=== PATIENT | male | born 1970 | race Caucasian/White ===

== ENCOUNTER 2022-10-03 15:37 | Outpatient (CLI) | payer OTHER, SELFPAY ==
--- NOTE | ~2022-10-03 | US_ITS ---
EXAMINATION: US venous doppler [facility] DATE: 10/03/2022 16:28 INDICATION: Coagulopathy with activated protein C resistance presenting with lower limb pain. TECHNIQUE: Grayscale ultrasound images without and with compression and Doppler ultrasound images of the left lower extremity veins were obtained. COMPARISON: None. FINDINGS: The visualized portions of left common femoral vein, profunda (deep) femoral vein, femoral vein, popl iteal vein, peroneal veins, posterior tibial veins, gastrocnemius vein and greater saphenous vein out flow are patent. IMPRESSION: 1. No deep venous thrombosis in the left lower limb. Reviewed, dictated and finalized at location B. [employer]
== END 2022-10-03 15:38 | disposition home or self-care (01) ==
PROVIDERS: PCP Emergency Medicine; Visit Provider Emergency Medicine
DX: D68.51 Activated protein C resistance (principal); M79.605 Pain in left leg; R10.32 Left lower quadrant pain
CPT/HCPCS: 93971

== ENCOUNTER 2022-11-21 16:08 | Outpatient (CLI) | payer OTHER, SELFPAY ==
--- NOTE | ~2022-11-21 | US_ITS ---
EXAMINATION: US soft tissue groin LT DATE: 11/21/2022 17:01 INDICATION: Assess for inguinal versus femoral hernia TECHNIQUE: Multiple grayscale and Doppler ultrasound images of the left groin were obtained. COMPARISON: None FINDINGS/IMPRESSION: With Valsalva there is development of a small fat-containing indirect left inguinal hernia arising la teral to the hypogastric vessels. Reviewed, dictated and finalized at location L.
== END 2022-11-21 16:09 | disposition home or self-care (01) ==
PROVIDERS: PCP Emergency Medicine; Visit Provider Emergency Medicine
DX: R10.32 Left lower quadrant pain (principal); K40.90 Unilateral inguinal hernia, without obstruction or gangrene, not specified as recurrent
CPT/HCPCS: 76882

== ENCOUNTER 2023-01-05 15:17 | Outpatient (CLI) | payer OTHER, SELFPAY ==
--- NOTE | 2023-01-05 15:30 | ECG_ITS ---
Measurements Intervals Harper Rate: 67 P: 66 MA: 177 QRS: 40 QRSD: 113 T: 35 QT: 385 QTc: 408 Interpretive Statements SINUS RHYTHM MODERATE INTRAVENTRICULAR CONDUCTION DELAY [110+ ms QRS DURATION] NO PREVIOUS ECG AVAILABLE FOR COMPARISON Electronically Signed On 01-05-2023 16:05:57 CDT by Halley Emmanuel M.D.
[2023-01-05 15:51] LABS: Anion Gap 6 mmol/L (8-16); Blood Urea Nitrogen 13 mg/dL (9-20); Calcium 9.6 mg/dL (8.4-10.2); Carbon Dioxide 30 mmol/L (22-30); Chloride 104 mmol/L (98-107); Estimated Glomerular Filt Rate > 60; Glucose 96 mg/dL (65-110); Potassium 4.6 mmol/L (3.4-5.0); Sodium 140 mmol/L (137-145)
[2023-01-05 15:56] LABS: Prothrombin Time 13.5 Seconds (11.1-14.7)
[2023-01-05 15:57] LABS: Partial Thromboplastin Time 28.9 SECONDS (22.3-36.8)
== END 2023-01-05 15:18 | disposition home or self-care (01) ==
LOC: ANHSURGERY 15:22
PROVIDERS: Anesthesiology; PCP Emergency Medicine; Visit Provider Surgery
DX: Z01.818 Encounter for other preprocedural examination (principal); K40.90 Unilateral inguinal hernia, without obstruction or gangrene, not specified as recurrent; D68.51 Activated protein C resistance; I10 Essential (primary) hypertension; Z79.899 Other long term (current) drug therapy
CPT/HCPCS: 36415; 80048; 85610; 85730; 86850; 86900; 86901; 93005

== ENCOUNTER 2023-01-11 01:30 | Day surgery (SDC) | payer OTHER, SELFPAY ==
[2023-01-02 15:30] VITALS: BMI 30.6
--- NOTE | 2023-01-02 15:35 | PC.NURSE ---
Report to the Outpatient Waiting Room, entrance under the green pavilion located off [facility], at time 6:00 on date 01/11/23. Planned Procedure Time: 7:30. Time changes happen often and if your time is changed the preop area will call you the afternoon before. - You and your visitor will be asked to self-screen and do not enter if you have any COVID symptoms. - A mask is optional within the hospital at this time. Patients may have clear liquids (water, carbonated beverages, clear teas, apple juice) until 3 hours prior to surgery (4:30) with a maximum of 20 ounces. - No food from midnight until time of surgery Take the following medications with a SIP of water the morning of surgery: FLUOXETINE DO NOT STOP ANY OF YOUR OTHER PRESCRIPTION MEDICATIONS PRIOR TO SURGERY EXCEPT THE FOLLOWING Medications to discontinue per physician: VITAMINS/SUPPLEMENTS Date to take last dose: 01/07/[address] DUFFY'S INSTRUCTIONS: LAST DOSE OF ELIQUIS 01/05/23 PM, THEN START LOVENOX 01/07/23 (AM & PM ON 01/07, 01/08, & 01/09. AM ONLY 01/10.) Please no make-up, nail english, hairspray, perfume, deodorant, or body powder the day of surgery. No jewelry (including any body piercings) or valuables the day of surgery, leave them at home. Please take a shower or bath the night before, or the morning of, surgery with an antibacterial soap (HIBICLENS). Wear comfortable, loose fitting clothing. - Jewelry must be removed prior to entering the operating room. Rings and piercings that are not removed may be cut off. - The hospital will not accept responsibility for valuables. - Please leave all valuables, including medications, at home the day of surgery. If you are going home after surgery, a licensed road driver must drive you home. - NO public transportation without another adult if you receive anesthesia. - We recommend that an adult stay with you for 24 hours following discharge. - We also recommend that you do not drive, make important decision, drink alcoholic beverages, or take any drugs that were not prescribed by your health care provider for at least 24 hours after your discharge time. Follow any additional instructions given to you from your surgeon. If you or anyone in your household have experienced Covid symptoms in the past week, please notify your surgeon or the nurse liaison at the phone number below for possible testing. Telephone instructions given to MICHAEL ALLAN and asked if any additional questions and then verbalized understanding. Patient advised to call surgeon office or pre surgery nurse liaison [phone] if any additional questions.
[2023-01-11] VITALS (9 sets, daily range): BP systolic 95–161; BP diastolic 46–99; PULSE 55–81; RESP 12–18; TEMP 36.5–36.8; O2SAT 99–100
[2023-01-11] MEDS: ACETAMINOPHEN 500 MG TABLET 1000 MG PO (06:48)
[2023-01-11] MEDS: KETOROLAC 15 MG/ML VIAL (*BKC) IV PUSH (07:00)
--- NOTE | 2023-01-11 07:01 | WPDANESEPPF ---
Anes - Initial Pre Proc Eval Procedure: Operation Date: 01/11/23 07:30 Proposed Procedures p Laparoscopic Left Inguinal Hernia Repair with Mesh, Davinci Assisted - Vincent Mcintosh DO s Open Umbilical Hernia Repair Possible Mesh - Vincent Mcintosh DO Date/Time: 01/11/23 07:01 Surgeon: Vincent Mcintosh DO Pre Op Diagnosis: umbilical hernia, left inguinal hernia Patient Data Age: 52 Gender: M Height: 1.91 m Weight: 112.2 kg Last Vital Signs Temp 36.5 C 01/11/23 06:22 Pulse 74 01/11/23 06:22 Resp 16 01/11/23 06:22 BP 143/97 H 01/11/23 06:22 Pulse Ox 99 01/11/23 06:22 O2 Del Method Room Air 01/11/23 06:22 Allergies Allergy/AdvReac Type Severity Reaction Status Date / Time No Known Allergies Allergy Verified 01/11/23 06:39 Home Medications Medication Instructions Recorded Confirmed Type lisinopril 10 See Rx Instructions .Route 05/05/22 01/11/23 Rx mg-hydrochlorothiazide 12.5 mg .COMPLEX #90 tabs tablet omeprazole 40 mg capsule,delayed See Rx Instructions .Route 06/02/22 01/11/23 Rx release .COMPLEX #90 caps apixaban 5 mg tablet (Eliquis) 5 mg PO BID #180 tabs 07/04/22 01/11/23 Rx enoxaparin 100 mg/mL subcutaneous 100 mg subcut Q12H #8 mL 12/08/22 01/11/23 Rx syringe (Lovenox) fluoxetine 20 mg capsule See Rx Instructions .Route 12/19/22 01/02/23 Rx .COMPLEX #180 caps cholecalciferol (vitamin D3) 125 125 mcg PO DAILY 01/02/23 01/11/23 History mcg (5,000 unit) tablet (Vitamin D3) omega 6-bup-rix-fish oil 1,000 mg 1 cap PO DAILY 01/02/23 01/11/23 History (120 mg-180 mg) capsule (Fish Oil) Patient hx anesthesia problems: none Family hx anesthesia problems: none Results Review: All pre-operative results and documents have been reviewed as part of the pre-operative evaluation. 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 Alcohol intake: current Drinks per week: 21 Alcohol use details: 3/DAY Substance use: never Substance use type: does not use Lack of Transportation: No Lack of Food: Never True Current Housing: I Have Housing Concerned About Future Housing: No Difficulty Paying Gas/Electric Bills: No Difficulty Paying for Meds: No Currently Unemployed: No Education: Master's Degree or Higher Difficulty w/ Childcare or Family Care: No Living arrangements: with family Spiritual care concerns: No Anes - Eval Final PreProcedure Day of Procedure 01/11/23 07:01 Patient weight: overweight Heart: regular rate and rhythm Lungs: clear to auscultation Airway: Mallampati scale class 1 Neurological: alert and oriented Last oral intake: >/= 8 hours ASA classification: III Emergent: no Anesthetic plan: proceed Anesthesia type and monitoring: general ETT and standard monitoring Results Review: All pre-operative results and documents have been reviewed as part of the pre-operative evaluation. Informed Consent: The patient's anesthetic plan and its attendant risks and benefits were discussed with the patient/family/POA. Questions were solicited and answers provided to the satisfaction of the patient/family/POA.
[2023-01-11] MEDS: LACTATED RINGERS 1,000 ML 30 ML IV CONT ×3 (07:06→10:40)
--- NOTE | 2023-01-11 07:11 | WPDHPUPDATE1 ---
History and Physical Update Update Date/Time: 01/11/23 07:11 History and Physical has been reviewed, including an updated exam of the patient. There are NO changes in the patient's condition. Risks, benefits, and alternatives have been discussed and questions answered. Patient agrees to proceed with procedure.
--- NOTE | 2023-01-11 07:11 | PM.IMHP ---
H&P: HPI History of Present Illness Date/Time: 01/11/23 07:11 Chief Complaint: LIH, umbilical hernia Narrative: 52 yo man presents for LIH repair and umbilical hernia repair. He denies any changes since last seen in office. Review of Systems Review of Systems: All systems reviewed & are unremarkable except as noted in HPI and below Constitutional: Constitutional: Denies chills, Denies fever(s), Denies headache(s) and Denies weight loss Eyes: Eyes: Denies change in vision ENT: Denies dizziness, Denies headache(s), Denies neck mass and Denies throat swelling Cardiovascular: Cardiovascular: Denies chest pain, Denies lightheadedness and Denies dyspnea Respiratory: Respiratory: Denies cough, Denies dyspnea and Denies wheezing Gastrointestinal: Gastrointestinal: Denies abdominal pain, Denies change in bowel habits, Denies nausea and Denies vomiting Genitourinary: Genitourinary: Denies hematuria and Denies dysuria Musculoskeletal: Musculoskeletal: Reports as per HPI Integumentary/Breasts: Skin/Breast: Reports as per HPI Neurologic: Denies dizziness and Denies headache(s) Allergic/Immunologic: Allergic/Immunologic: Denies throat swelling and Denies wheezing PMFSH Surgical History Surgical History S/P left knee arthroscopy Family History Family History Mother Family history of primary malignant neoplasm of liver Sibling Family history of malignant neoplasm of ovary Social History Social History Years smoked: 6 Smoking status: Former smoker Tobacco type: cigarettes Smoking end date: 09/11/06 Additional smoking assessment comments: FORMER SOC[employer] SMOKER Alcohol intake: current Drinks per week: 21 Alcohol use details: 3/DAY Substance use: never Substance use type: does not use Lack of Transportation: No Lack of Food: Never True Current Housing: I Have Housing Concerned About Future Housing: No Difficulty Paying Gas/Electric Bills: No Difficulty Paying for Meds: No Currently Unemployed: No Education: Master's Degree or Higher Difficulty w/ Childcare or Family Care: No Living arrangements: with family Spiritual care concerns: No Meds Home Medications and Allergies Home Medications Medication Instructions Recorded Confirmed Type lisinopril 10 See Rx Instructions .Route 05/05/22 01/11/23 Rx mg-hydrochlorothiazide 12.5 mg .COMPLEX #90 tabs tablet omeprazole 40 mg capsule,delayed See Rx Instructions .Route 06/02/22 01/11/23 Rx release .COMPLEX #90 caps apixaban 5 mg tablet (Eliquis) 5 mg PO BID #180 tabs 07/04/22 01/11/23 Rx enoxaparin 100 mg/mL subcutaneous 100 mg subcut Q12H #8 mL 12/08/22 01/11/23 Rx syringe (Lovenox) fluoxetine 20 mg capsule See Rx Instructions .Route 12/19/22 01/02/23 Rx .COMPLEX #180 caps cholecalciferol (vitamin D3) 125 125 mcg PO DAILY 01/02/23 01/11/23 History mcg (5,000 unit) tablet (Vitamin D3) omega 7-pnk-ojk-fish oil 1,000 mg 1 cap PO DAILY 01/02/23 01/11/23 History (120 mg-180 mg) capsule (Fish Oil) Allergies Allergy/AdvReac Type Severity Reaction Status Date / Time No Known Allergies Allergy Verified 01/11/23 06:39 Vital Signs Vital Signs - 24 hr 01/11/23 06:22 Temperature 36.5 C Pulse Rate 74 Respiratory Rate 16 Blood Pressure 143/97 H Pulse Oximetry 99 Oxygen Delivery Room Air Exam Const: General: no acute distress and alert Orientation/consciousness: patient oriented x3 HENMT: Head: normocephalic and atraumatic Ears: hearing grossly normal bilaterally Face/Nose/Sinus: Normal nares present Mouth: Yes Normal oral and palatal mucosa present Eyes: Periorbital: periorbital findings normal Sclera: sclerae normal EOM: EOMs intact bilaterally Neck: Neck: normal visual inspection, no lymphadeno
[2023-01-11] MEDS: ceFAZolin 2 GM/D5W 50 ML 2 GM/50 ML BAG IVPB (07:24)
[2023-01-11] MEDS: BUPIVACAINE/EPINEPHRINE 0.5% 50 ML VIAL 30 ML INFILTRATE (08:03)
--- NOTE | 2023-01-11 09:03 | W.PM.PROC2 ---
Procedure Note - Detailed Date of Procedure 01/11/23 Pre-op Diagnosis umbilical hernia, left inguinal hernia Post-op Diagnosis Other (1 cm umbilical hernia, bilateral indirect inguinal hernias) Procedure Performed 1. Laparoscopic bilateral inguinal hernia repair with mesh, da Ayde assisted 2. Open 1 cm umbilical hernia repair Surgeon Vincent Mcintosh DO Anesthesia General and Local (0.5% bupivacaine with epinephrine) Indications This is a 52-year-old man who presented with left groin pain for the past couple months. He did not notice a bulge in the region, but was having left groin pain and back pain. An ultrasound was obtained which showed evidence of a left inguinal hernia. Was also found to have a reducible 1 cm umbilical hernia on exam. Discussions were made with the patient about treatment options and decision was made to proceed with laparoscopic left inguinal hernia repair and open umbilical hernia repair Findings Upon inspecting the abdomen laparoscopically, patient was found to have a small indirect left inguinal hernia and he was also found to have a small indirect right inguinal hernia. Decision was made to repair both hernias. Robotic transabdominal preperitoneal approach was utilized. Large 3DMax mid mesh was placed overlying each myopectineal orifice. No specimens were obtained for pathology. After completing the inguinal hernia repair, then extended the umbilical incision and identified a 1 cm umbilical hernia. This was repaired primarily using 0 Ethibond [id number] sutures. Description of Procedure Procedure as well as risks, benefits, and alternatives were discussed with the patient. Written consent was obtained and placed in chart prior to procedure. Patient was brought back to surgical suite. He was placed supine on operating table. Time-out was done to confirm patient and procedure. He was then intubated by Anesthesia Department. His abdomen was prepped and draped in sterile fashion using chlorhexidine prep. 0.5% bupivacaine with epinephrine was infiltrated at each location for incision. An 8 mm incision was made in the left lateral abdomen, and a 5 mm Optiview trocar was advanced through the abdominal layers under direct visualization. Once inside the abdominal cavity, carbon dioxide insufflation was used to create a pneumoperitoneum. A camera was inserted and the abdominal cavity was inspected. The patient was placed in slight Trendelenburg position. An 8 millimeter incision was made on the right lateral abdomen and an 8 millimeter trocar was inserted under direct visualization. Another 8 millimeter incision was made just superior to the umbilicus and an 8 millimeter trocar was inserted under direct visualization. The 5 mm port was then removed and this was replaced with another 8 mm robotic port. The robotic arms were brought up to the patient's bedside and secured to the ports. The camera and instruments were inserted. I then moved over to the robotic console and took control of the camera and instruments. After careful inspection of the abdominal cavity, I began scoring the peritoneum along the left lower quadrant using scissors with electrocautery. The preperitoneal plane was entered and this was carefully dissected caudally along the inferior epigastric vessels. Careful dissection with scissors with electrocautery and blunt dissection was used to continue this dissection. I dissected far enough laterally to allow for mesh placement, and also dissected medially to identify the pubic arch and Federico's ligament. The hernia sac was identified and carefully dissected posteriorly. The cord contents were also identified and the peritoneum was carefully dissected far enough posteriorly to allow for mesh placement. Once an adequate pocket was created, I then placed the mesh within the preperitoneal pocket and carefully unfolded it. The mesh was centered on the hernia defect with adequate overlap circumferentially. The
== END 2023-01-11 11:35 | disposition home or self-care (01) ==
PROVIDERS: PCP Emergency Medicine; Visit Provider Surgery
PROC: 8E0Y4CZ Robotic Assisted Procedure of Lower Extremity, Percutaneous Endoscopic Approach (ICD-10-PCS; CPT 49650; principal; 2023-01-11 07:30)
PROC: (CPT 49650; 2023-01-11 07:30)
DX: K40.20 Bilateral inguinal hernia, without obstruction or gangrene, not specified as recurrent (principal); K42.9 Umbilical hernia without obstruction or gangrene; Z79.01 Long term (current) use of anticoagulants; Z87.891 Personal history of nicotine dependence
CPT/HCPCS: 49650; 49591; S2900; 36415; 80048; 85610; 85730; 86850; 86900; 86901; 93005; A9270; C1781; J0330; J0690; J1100; J1170; J1885; J2250; J2405; J2704; J3010; J7030; J7120

== ENCOUNTER 2023-12-08 07:40 | Outpatient (CLI) | payer OTHER, SELFPAY ==
[2023-12-08 08:07] LABS: Basophils Absolute Auto 0.1 K/mm3 (0.0-0.1); Basophils Percent Auto 1.2 % (0.2-1.2); Eosinophils Absolute Auto 0.2 K/mm3 (0-0.3); Eosinophils Percent Auto 4.1 % (0-4.4); Hematocrit 46.2 % (42.0-52.0); Hemoglobin 14.9 g/dL (14.0-18.0); Immature Granulocyte Absolute 0.04 K/mm3 (0.00-0.031); Immature Granulocyte Percent A 0.7 % (0-0.5); Lymphocytes Absolute Auto 1.41 K/mm3 (0.9-3.2); Mean Corpuscular HGB Conc 32.3 g/dl (32-36); Mean Corpuscular Hemoglobin 29.1 pg (26-34); Mean Corpuscular Volume 90.2 fl (80-100); Mean Platelet Volume 9.8 fl (7.4-10.4); Monocytes Absolute Auto 0.7 K/mm3 (0.1-0.6); Monocytes Percent Auto 11.1 % (2.6-8.5); Neutrophils Absolute Auto 3.5 K/mm3 (1.3-6.7); Neutrophils Percent Auto 58.9 % (45.5-73.1); Platelet Count Result 229 k/mm3 (150-375); Red Blood Count 5.12 M/mm3 (4.6-6.20); Red Cell Distribution Width 13.9 % (11.5-14.5); White Blood Count 5.9 K/mm3 (4.5-10.0)
[2023-12-08 08:18] LABS: Alanine Aminotransferase 31 U/L (6-50); Albumin Level 4.5 g/dL (3.5-5.1); Alkaline Phosphatase 55 U/L (38-126); Anion Gap 8 mmol/L (4-12); Aspartate Amino Transferase 29 U/L (17-59); Bilirubin,Total 0.8 mg/dL (0.2-1.3); Blood Urea Nitrogen 14 mg/dL (9-20); Carbon Dioxide 28 mmol/L (22-30); Chloride 106 mmol/L (98-107); Cholesterol 214 mg/dL (0-200); Estimated Glomerular Filt Rate > 60; Glucose 107 mg/dL (65-110); HDL Direct 47 mg/dL; Potassium 4.5 mmol/L (3.4-5.0); Sodium 142 mmol/L (137-145); Triglycerides 160 mg/dL (<150)
[2023-12-08 08:29] LABS: LDL Cholesterol Direct 127 mg/dL
[2023-12-08 08:47] LABS: Prostate Specific Antigen 1.8 ng/mL (< OR = 4.0)
[2023-12-08 09:20] LABS: Hemoglobin A1C 5.6 % (<5.7)
== END 2023-12-08 07:41 | disposition home or self-care (01) ==
LOC: ANHLAB 07:42
PROVIDERS: PCP Emergency Medicine; Visit Provider Emergency Medicine
DX: Z13.1 Encounter for screening for diabetes mellitus (principal); Z12.5 Encounter for screening for malignant neoplasm of prostate; I10 Essential (primary) hypertension; G25.81 Restless legs syndrome
CPT/HCPCS: 36415; 80053; 80061; 82728; 83036; 84153; 85025; G0103

== ENCOUNTER 2024-02-07 08:09 | Day surgery (SDC) | payer OTHER, SELFPAY ==
[2024-01-22 10:03] VITALS: BMI 31.8
[2024-01-26 11:31] VITALS: BMI 30.7
--- NOTE | 2024-02-06 14:01 | WPDANESEPPF ---
Anes - Initial Pre Proc Eval Procedure: Operation Date: 02/07/24 10:30 Proposed Procedures p Diagnostic Colonoscopy - Keyur Brooks MD Date/Time: 02/06/24 14:01 Surgeon: Keyur Brooks MD Pre Op Diagnosis: History of colon polyps Patient Data Age: 53 Gender: M Height: 1.91 m Weight: 111.3 kg Allergies Allergy/AdvReac Type Severity Reaction Status Date / Time No Known Allergies Allergy Verified 02/07/24 09:15 Home Medications Medication Instructions Recorded Confirmed Type cholecalciferol (vitamin D3) 125 125 mcg PO DAILY 01/02/23 02/07/24 History mcg (5,000 unit) tablet (Vitamin D3) omega 9-utn-ogm-fish oil 1,000 mg 1 cap PO DAILY 01/02/23 02/07/24 History (120 mg-180 mg) capsule (Fish Oil) apixaban 5 mg tablet (Eliquis) 5 mg PO BID #180 tabs 01/17/24 02/07/24 Rx atorvastatin 20 mg tablet 20 mg PO QHS #90 tabs 01/17/24 02/07/24 Rx fluoxetine 20 mg capsule 20 mg PO DAILY 01/26/24 02/07/24 History lisinopril 10 1 tablet PO DAILY 01/26/24 02/07/24 History mg-hydrochlorothiazide 12.5 mg tablet omeprazole 40 mg capsule,delayed 40 mg PO DAILY 01/26/24 02/07/24 History release Patient hx anesthesia problems: none Family hx anesthesia problems: none Results Review: All pre-operative results and documents have been reviewed as part of the pre-operative evaluation. [facility] Past Medical History Medical History (Updated 02/07/24 @ 10:24 by Quan Gray DO) ADHD Anxiety Essential (primary) hypertension Factor V Leiden History of DVT (deep vein thrombosis) Mixed hyperlipidemia Restless leg syndrome Surgical History Surgical History Hx of umbilical hernia repair lap LIH re w/ mesh Da Ayde assisted, open umb hernia re, poss mesh 01/11/23 S/P left knee arthroscopy Family History Family History Mother Family history of primary malignant neoplasm of liver Sibling Family history of malignant neoplasm of ovary Social History Social History (Updated 07/19/23 @ 16:09 by Cecilia Slaughter) Social History: Caffeine-coffee Years smoked: 6 Smoking status: Former smoker Tobacco type: cigarettes Smoking end date: 09/11/06 Additional smoking assessment comments: FORMER SOCIAL SMOKER Alcohol intake: current Drinks per week: 15 Substance use: never Substance use type: does not use Lack of Transportation: No Lack of Food: Never True Current Housing: I Have Housing Concerned About Future Housing: No Difficulty Paying Gas/Electric Bills: No Difficulty Paying for Meds: No Currently Unemployed: No Education: Master's Degree or Higher Difficulty w/ Childcare or Family Care: No Living arrangements: with family Spiritual care concerns: No Anes - Eval Final PreProcedure Day of Procedure 02/06/24 14:01 Patient weight: obese Heart: regular rate and rhythm Lungs: clear to auscultation Airway: Mallampati scale class II Neurological: alert and oriented Last oral intake: >/= 8 hours ASA classification: III Emergent: no Anesthetic plan: proceed Anesthesia type and monitoring: general GIVS and standard monitoring Results Review: All pre-operative results and documents have been reviewed as part of the pre-operative evaluation. Informed Consent: The patient's anesthetic plan and its attendant risks and benefits were discussed with the patient/family/POA. Questions were solicited and answers provided to the satisfaction of the patient/family/POA.
[2024-02-07 09:21] VITALS: BP 152/107; PULSE 72; RESP 18; TEMP 37.1; O2SAT 99; BMI 30.1
[2024-02-07] MEDS: LACTATED RINGERS 1,000 ML 150 ML IV CONT (09:41)
--- NOTE | 2024-02-07 09:56 | PM.HPGS ---
History of Present Illness History of Present Illness Consent: Risks, benefits, and alternatives have been discussed and questions answered. Patient agrees to proceed with procedure. Chief complaint: History of colon polyps Narrative: Yosi Campos is a 53 year old male presents for screening colonoscopy. Patient's current weight appetite and bowel movements are normal. Patient denies abdominal pain. He has had no bleeding. Family history noncontributory. This colonoscopy 2019 revealed benign colon Review of Systems Review of Systems: Review of systems noncontributory. ON LICENSE OF [facility] Past Medical History Medical History (Updated 02/06/24 @ 14:02 by Quan Gray DO) ADHD Anxiety Essential (primary) hypertension Factor 5 Leiden mutation, heterozygous History of DVT (deep vein thrombosis) Mixed hyperlipidemia Restless leg syndrome Surgical History Surgical History Hx of umbilical hernia repair lap LIH re w/ mesh Da Ayde assisted, open umb hernia re, poss mesh 01/11/23 S/P left knee arthroscopy Family History Family History Mother Family history of primary malignant neoplasm of liver Sibling Family history of malignant neoplasm of ovary Social History Social History (Updated 07/19/23 @ 16:09 by Cecilia Slaughter) Social History: Caffeine-coffee Years smoked: 6 Smoking status: Former smoker Tobacco type: cigarettes Smoking end date: 09/11/06 Additional smoking assessment comments: FORMER SOCIAL SMOKER Alcohol intake: current Drinks per week: 15 Substance use: never Substance use type: does not use Lack of Transportation: No Lack of Food: Never True Current Housing: I Have Housing Concerned About Future Housing: No Difficulty Paying Gas/Electric Bills: No Difficulty Paying for Meds: No Currently Unemployed: No Education: Master's Degree or Higher Difficulty w/ Childcare or Family Care: No Living arrangements: with family Spiritual care concerns: No Meds Home Medications and Allergies Home Medications Medication Instructions Recorded Confirmed Type cholecalciferol (vitamin D3) 125 125 mcg PO DAILY 01/02/23 02/07/24 History mcg (5,000 unit) tablet (Vitamin D3) omega 9-flo-fee-fish oil 1,000 mg 1 cap PO DAILY 01/02/23 02/07/24 History (120 mg-180 mg) capsule (Fish Oil) apixaban 5 mg tablet (Eliquis) 5 mg PO BID #180 tabs 01/17/24 02/07/24 Rx atorvastatin 20 mg tablet 20 mg PO QHS #90 tabs 01/17/24 02/07/24 Rx fluoxetine 20 mg capsule 20 mg PO DAILY 01/26/24 02/07/24 History lisinopril 10 1 tablet PO DAILY 01/26/24 02/07/24 History mg-hydrochlorothiazide 12.5 mg tablet omeprazole 40 mg capsule,delayed 40 mg PO DAILY 01/26/24 02/07/24 History release Allergies Allergy/AdvReac Type Severity Reaction Status Date / Time No Known Allergies Allergy Verified 02/07/24 09:15 Vital Signs Vital Signs - 24 hr 02/07/24 09:21 Temperature 98.7 F Pulse Rate 72 Respiratory Rate 18 Blood Pressure 152/107 H Pulse Oximetry 99 Oxygen Delivery Room Air Exam Narrative: Physical exam reveals patient to be alert. Vital signs stable. HEENT exam is unremarkable. Patient is anicteric. Lungs are clear to auscultation and percussion is without murmur or extra sounds. Abdomen bowel sounds are present soft nontender with no organomegaly. Digital external rectal exam normal. Assessment and Plan Assessment and plan (1) History of colonic polyps: Code(s): Z86.010 - Personal history of colonic polyps Status: Acute Assessment and Plan: Patient has a history of benign colon polyps. He presents today for follow-up colonoscopy.
[2024-02-07 10:48] VITALS: BP 105/77; PULSE 69; RESP 17; O2SAT 98
[2024-02-07 10:58] VITALS: BP 125/95; PULSE 70; RESP 18; O2SAT 99
--- NOTE | 2024-02-07 11:06 | SUR.PHASEII ---
Pt instructed to continue to hold Eliquis for 2 days. Pt and pt's spouse verbalized understanding to not resume Eliquis until 02/09/2024.
[2024-02-07 11:08] VITALS: BP 139/91; PULSE 65; RESP 18; O2SAT 100
--- NOTE | 2024-02-07 12:56 | WPDANESPN ---
Anes - Prog Note Post-Op Date/Time: 02/07/24 12:56 Cardiovascular status: normal Respiratory status: normal Airway patency: baseline Mental status: baseline Post-Op hydration status: normal Vital Signs: Last Vital Signs Temp 37.1 C 02/07/24 09:21 Pulse 65 02/07/24 11:08 Resp 18 02/07/24 11:08 BP 139/91 H 02/07/24 11:08 Pulse Ox 100 02/07/24 11:08 O2 Del Method Room Air 02/07/24 11:08 Pain Score (VAS): 0 I/O: Intake & Output 02/06/24 02/07/24 02/07/24 23:59 07:59 15:59 Intake Total 800 Balance 800 Post-procedural complaints: none Patient Feedback: Patient satisfied with anesthetic care. Other Findings: Patient vital signs back to baseline. Patient denies nausea and vomiting. Patient's pain under control. Patient OK for discharge.
== END 2024-02-07 11:14 | disposition home or self-care (01) ==
PROVIDERS: PCP Emergency Medicine; Visit Provider Internal Medicine Gastroenterology
PROC: 0DJD8ZZ Inspection of Lower Intestinal Tract, Via Natural or Artificial Opening Endoscopic (ICD-10-PCS; CPT 45378; principal; 2024-02-07 10:30)
DX: Z86.010 Personal history of colon polyps (principal); D12.5 Benign neoplasm of sigmoid colon
CPT/HCPCS: 45385

== ENCOUNTER 2024-02-07 08:56 | Outpatient (NON) | payer OTHER, SELFPAY | END 2024-02-07 08:57 | disposition home or self-care (01) | LOC: ANHLAB 02-08 08:58 | PROVIDERS: PCP Emergency Medicine; Visit Provider Internal Medicine Gastroenterology | DX: D12.5 Benign neoplasm of sigmoid colon (principal); Z86.010 Personal history of colon polyps | CPT/HCPCS: 88305 ==

== ENCOUNTER 2024-10-16 15:59 | Outpatient (CLI) | payer OTHER, SELFPAY ==
--- NOTE | ~2024-10-16 | XR_ITS ---
AP view of the pelvis and lateral view AP and lateral views of the left hip Clinical history: Pain Findings: No acute fracture or dislocation is seen. Osseous alignment is anatomic. There is moderate degenerative change of both hip joint. Soft tissues are unremarkable. 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 Reviewed, dictated and finalized at location . 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
== END 2024-10-16 16:00 | disposition home or self-care (01) ==
LOC: GOSHIMG 16:00
PROVIDERS: PCP Nurse Practitioner Family; Visit Provider Nurse Practitioner Family
DX: M16.0 Bilateral primary osteoarthritis of hip (principal)
CPT/HCPCS: 73502

== ENCOUNTER 2025-01-23 15:30 | Outpatient (RCR) | payer OTHER, SELFPAY ==
--- NOTE | 2024-12-13 16:00 | OPREHPOC ---
Outpatient Therapy Plan of Care This is a Multidisciplinary Plan of Care that may contain components documented by all disciplines (PT, OT, and ST.) PT Problem 1 PT Problem #1 Knowledge Deficit PT Goal 1 Goal / Goal Update *independent with HEP Target Visit 8 PT Goal 1 Goal / Goal Update * pt report pain rating at worst of 7/10 Target Visit 8 PT Problem 3 PT Problem #3 Impaired Strength PT Goal 1 Goal / Goal Update * increase strength of L hip, to improve stability to hip joint: 1* hip extension 4+/5 2* hip abduction 4+/5 3* single leg standing 20 seconds with good stability Target Visit 10 PT Problem 4 PT Problem #4 Impaired Flexibility PT Goal 1 Goal / Goal Update *increase flexibility of L hip musculature to decrease strain on joint: 1* hamstring length with supine SLR 55' 2* anterior hip/quad length with prone knee flexion 125' 3* hip extension 5' in prone Target Visit 8
--- NOTE | 2024-12-13 16:00 | PTOPEVAL1 ---
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 He has moderate degenerative changes on recent xray, with gradual increase in pain lately. LE functional scale rating of 70% limitation in activity level. 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 Pain increases with walking, rolling over in bed and getting in/out of car. With the evaluation: decreased ROM of L hip flexion, IR and extension ranges-- IR is most painful; tightness over hamstring, anterior hip/ quad muscles and Decreased strength of hip extension and abduction motions. Skilled PT services are indicated for modalities to decrease pain, therapeutic exercises to increase flexibility and strength of L hip and education for HEP and pain management. Plan of Care Interventions Electrical Stimulation,Hot Pack/Cold Pack,Manual Therapy,Neuro Re-education,Patient/Caregiver Education,Therapeutic Activities,Therapeutic Exercise,Ultrasound PT Services Indicated Yes Treatment Frequency and 1-2x/wk for 8 visits Duration These treatments will address the objective and functional deficits as defined above. The patient will be advanced safely and appropriately in order for the patient to progress towards his/her prior level of function. Additional exercises will be introduced and as well as a comprehensive home exercise program upon discharge, if needed, ?to ensure carryover of functional gains achieved in the clinic. This treatment plan has been reviewed and agreement upon by the patient.
--- NOTE | 2025-01-23 16:09 | OPREHPOC ---
Outpatient Therapy Plan of Care This is a Multidisciplinary Plan of Care that may contain components documented by all disciplines (PT, OT, and ST.) PT Problem 1 PT Problem #1 Knowledge Deficit PT Goal 1 Goal / Goal Update *independent with HEP 01-23-25 d/c goal met Target Visit 8 Progress Met PT Goal 1 Goal / Goal Update * pt report pain rating at worst of 03/20 01-23-25 d/c goal not met, 05/21 Target Visit 8 Progress Not Met PT Problem 3 PT Problem #3 Impaired Strength PT Goal 1 Goal / Goal Update * increase strength of L hip, to improve stability to hip joint: 1* hip extension 4+/5 2* hip abduction 4+/5 3* single leg standing 20 seconds with good stability 01-23-25 d/c goal not met, improved Target Visit 10 Progress Not Met PT Problem 4 PT Problem #4 Impaired Flexibility PT Goal 1 Goal / Goal Update *increase flexibility of L hip musculature to decrease strain on joint: 1* hamstring length with supine SLR 55' 2* anterior hip/quad length with prone knee flexion 125' 3* hip extension 5' in prone 01-23-25 d/c goals met Target Visit 8 Progress Met
--- NOTE | 2025-01-23 16:09 | PTOPDC ---
Assessment and note entered by Joslyn Rodrigues, PT Assessment Status Discharge ICD-10 Condition Codes (PT) Pain in left hip M25.552 Onset Sep 2024 Subjective Information have been taking it easy-- not doing much, is mowing the yard; in/out car is the worst and causes sharp pain; have been doing the exercises without any problems; follow up with at end of the month; agree with d/c from therapy and continue the exercises. Reported Pain Level Pain Score Self Report R hip Additional Pain Score Comments pain range of 0-9/10 in the past week: increase pain: getting in/out car get sharp pain decrease pain: rest, change positions Assessment PT Clinical Summary Yosi has received 8 PT sessions. Compared to the initial evaluation: pain range from 2-9/10 to 0-9/10; self assessment with LE functional scale from 70 to 56% limitation in activity level; increase strength of L hip with single leg standing x 12 seconds with good stability; increase flexibility of L hamstring and anterior hip/quad muscles; continues to walk with decreased wt shift onto R LE. Education completed for HEP. The goals were partially met. Discharge PT. He is to continue with HEP and walking/activity as tolerated. Plan of Care PT Services Indicated No
== END 2025-01-23 16:47 | disposition home or self-care (01) ==
LOC: ANHPT 15:30
PROVIDERS: PCP Nurse Practitioner Family; Visit Provider Nurse Practitioner Family
DX: M25.552 Pain in left hip (principal)
CPT/HCPCS: 97110; 97140; 97161; 97530

== ENCOUNTER 2025-02-13 08:32 | Outpatient (CLI) | payer OTHER, SELFPAY ==
--- NOTE | ~2025-02-13 | MR_ITS ---
MRI of the left hip Clinical history: Pain Technique: Coronal T1-weighted, T2-weighted, and proton-density fat-sat images, and axial T1-weighted and proton-density fat-sat images were acquired through the pelvis. Coronal T2-weighted images and c oronal, axial, and sagittal proton-density fat-sat images were acquired through the left hip. Findings: There is no fracture or avascular necrosis of either hip. 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 There is focal subchondral marrow edema at the superior femoral head and minimally in the superior left acetabulum. Small to moderate left hip joint is present, presumably r eactive. There is probable degenerative change of the anterior left acetabular labrum. There are femo ral head neck junction osteophytes at the left hip. There is diffuse high-grade chondromalacia the right hip joint with small femoral head and junction o steophytes. Small to moderate right hip joint effusion is present, likely reactive. Bone marrow signals in the remaining pelvic bones are unremarkable. SI joints are intact. Visualized musculature about the pelvis and left hip is unremarkable. No muscle atrophy or edema. Vis ually tendons are intact. No soft tissue mass or fluid collection. IMPRESSION: Severe osteoarthritis of both hip joints, as detailed above. Bilateral hip joint effusions are present, presumably reactive. Reviewed, dictated and finalized at location .
== END 2025-02-13 08:33 | disposition home or self-care (01) ==
PROVIDERS: PCP Nurse Practitioner Family; Visit Provider Nurse Practitioner Family
DX: M16.0 Bilateral primary osteoarthritis of hip (principal); M25.452 Effusion, left hip; M25.451 Effusion, right hip
CPT/HCPCS: 73721

== ENCOUNTER 2025-03-21 07:27 | Outpatient (CLI) | payer OTHER, SELFPAY ==
--- NOTE | 2025-03-21 | ECG_ITS ---
Test Date: 2025-03-21 08:23:37 Measurements Intervals [place] Rate: 66 P: 37 ID: [id number] QRS: 39 QRSD: 115 T: 47 QT: 394 QTc: 414 Interpretive Statements SINUS RHYTHM Electronically Signed On 03-21-2025 11:07:23 CDT by Earl Baca D.O
--- NOTE | ~2025-03-21 | XR_ITS ---
Clinical Indication: Preoperative clearance PA and lateral views of the chest: Comparison: None Findings: The lungs are clear, without evidence of focal consolidation or pleural effusion. Cardiome diastinal silhouette is within normal limits. Bones and soft tissues are unremarkable. Impression: Normal chest. Reviewed, dictated and finalized at location . Impression: Normal chest.
[2025-03-21 08:32] LABS: Hematocrit 42.6 % (42.0-52.0); Hemoglobin 13.9 g/dL (14.0-18.0); Immature Granulocyte Percent A 0.7 % (0-0.5); Lymphocytes Absolute Auto 2.02 K/mm3 (0.9-3.2); Mean Corpuscular HGB Conc 32.6 g/dl (32-36); Mean Corpuscular Hemoglobin 28.7 pg (26-34); Mean Corpuscular Volume 88.0 fl (80-100); Nucleated Red Blood Cells Absolute Auto 0.000 K/mm3 (0.0-0.012); Nucleated Red Blood Cells Perc 0.0 % (0.0-0.2); Platelet Count Result 251 k/mm3 (150-375); Red Blood Count 4.84 M/mm3 (4.6-6.20); White Blood Count 7.4 K/mm3 (4.5-10.0)
[2025-03-21 08:43] LABS: Add Urine Microscopic? NO; Appearance Urine Clear (Clear); Glucose Urine UA Negative (Negative); Leukocyte Esterase Ur Negative LEU/UL (Negative); Nitrate Urine Negative (Negative); Specific Grav Ur 1.015 (1.001-1.035)
[2025-03-21 08:52] LABS: Alanine Aminotransferase 32 U/L (6-50); Albumin Level 4.5 g/dL (3.5-5.1); Alkaline Phosphatase 52 U/L (38-126); Anion Gap 10 mmol/L (4-12); Aspartate Amino Transferase 31 U/L (17-59); Bilirubin,Total 0.9 mg/dL (0.2-1.3); Blood Urea Nitrogen 15 mg/dL (9-20); Calcium 9.7 mg/dL (8.4-10.2); Carbon Dioxide 28 mmol/L (22-30); Chloride 99 mmol/L (98-107); Estimated Glomerular Filt Rate > 60; Glucose 100 mg/dL (65-110); Potassium 4.2 mmol/L (3.4-5.0); Sodium 137 mmol/L (137-145); Total Protein 8.5 g/dL (6.3-8.2)
[2025-03-21 10:31] LABS: Hemoglobin A1C 5.3 % (<5.7)
== END 2025-03-21 07:28 | disposition home or self-care (01) ==
PROVIDERS: PCP Nurse Practitioner Family; Visit Provider Orthopaedic Surgery
DX: M16.0 Bilateral primary osteoarthritis of hip (principal); Z01.818 Encounter for other preprocedural examination
CPT/HCPCS: 36415; 71046; 80053; 81003; 83036; 85025; 93005